=== PATIENT | male | born 1975 | race Two or more races ===

== ENCOUNTER 2020-02-13 02:30 | Emergency (ER) | payer MEDICAID ==
[~2020-02-13] VITALS: Ht 162.6 cm; Wt 73.0 kg
[2020-02-13 03:22] VITALS: BP 143/88
== END 2020-02-13 06:08 | disposition home or self-care (01) ==
LOC: ER 03:34
DX: R05 Cough (principal); R06.02 Shortness of breath; R09.89 Other specified symptoms and signs involving the circulatory and respiratory systems; Z20.828 Contact with and (suspected) exposure to other viral communicable diseases
CPT/HCPCS: 87635; 99283